=== PATIENT | female | born 1965 | race Caucasian/White ===

== ENCOUNTER 2020-06-28 09:04 | Emergency (ER) | payer OTHER ==
[~2020-06-28] VITALS: Ht 167.6 cm; Wt 63.5 kg
== END 2020-06-28 10:27 | disposition home or self-care (01) ==
LOC: ER 09:04
DX: S90.121A Contusion of right lesser toe(s) without damage to nail, initial encounter (principal); X50.1XXA Overexertion from prolonged static or awkward postures, initial encounter
CPT/HCPCS: 73620; 99283-25